=== PATIENT | male | born 1960 | race Caucasian/White ===

== ENCOUNTER 2019-08-16 15:16 | Inpatient (IN) | payer BC ==
[~2019-08-16] VITALS: Ht 177.8 cm; Wt 126.6 kg
[2019-08-16] MEDS ORDERED: ASPI81CH33 PO (15:27)
[2019-08-16] MEDS ORDERED: ABIL1TAB11 PO ×2 (15:28→21:52)
[2019-08-16] MEDS ORDERED: PLAV1TAB2 PO ×2 (15:28→21:52)
[2019-08-16] MEDS ORDERED: METO1TAB87 PO ×2 (15:38→21:52)
[2019-08-16] MEDS ORDERED: BUPR150T3 PO ×2 (15:39→21:52)
[2019-08-16] MEDS ORDERED: WELLTAB38 PO (15:40)
[2019-08-16] MEDS ORDERED: PANTOPRAZOLE 40MG INJ (PROTONIX) (C9113) IV ONE (17:00)
[2019-08-16] MEDS ORDERED: NS 1,000 ML IV ONE (17:00)
[2019-08-16] MEDS ORDERED: ONDANSETRON 4MG/2ML VIAL (J2405) IV ONE (17:00)
[2019-08-16 17:07] LABS: BASO % 0.4 % (0.0-1.0); EOS # 0.1 10^3/uL (0.0-0.5); EOS % 0.7 % (0.0-3.0); HEMATOCRIT 47.8 % (42.0-52.0); LYMPH # 1.9 10^3/uL (1.5-5.0); LYMPH % 19.2 % (24.0-44.0); MEAN CORPUSCULAR HEMOGLOBIN 31.3 pg (27.0-33.0); MEAN CORPUSCULAR HGB CONC 33.5 g/dl (32.0-36.5); MEAN CORPUSCULAR VOLUME 93.5 fl (80.0-96.0); MONO # 0.9 10^3/uL (0.0-0.8); MONO % 9.1 % (0.0-5.0); NEUTROPHILS # 7.1 10^3/uL (1.5-8.5); NEUTROPHILS % 70.1 % (36.0-66.0); PLATELET COUNT, AUTOMATED 254 10^3/uL (150-450); RED BLOOD COUNT 5.11 10^6/uL (4.30-6.10); WHITE BLOOD COUNT 10.1 10^3/uL (4.0-10.0)
[2019-08-16 17:17] LABS: INR 1.07; PROTHROMBIN TIME 13.6 SECONDS (11.8-14.0)
[2019-08-16 17:24] LABS: ALBUMIN 4.1 GM/DL (3.2-5.2); ALT/SGPT 36 U/L (12-78); AMYLASE 40 U/L (25-115); BILIRUBIN,DIRECT 0.2 MG/DL (0.0-0.2); BILIRUBIN,TOTAL 0.9 MG/DL (0.2-1.0); BLOOD UREA NITROGEN 15 MG/DL (7-18); CALCIUM LEVEL 8.9 MG/DL (8.5-10.1); CARBON DIOXIDE LEVEL 27 MEQ/L (21-32); CHLORIDE LEVEL 107 MEQ/L (98-107); CREATININE FOR GFR 1.23 MG/DL (0.70-1.30); GLOMERULAR FILTRATION RATE > 60.0 (>56); GLUCOSE, FASTING 104 MG/DL (70-100); LIPASE 94 U/L (73-393); POTASSIUM SERUM 4.5 MEQ/L (3.5-5.1); SODIUM LEVEL 141 MEQ/L (136-145); TOTAL PROTEIN 7.2 GM/DL (6.4-8.2)
[2019-08-16] MEDS: GASTROGRAFIN SOLUTION 30ML PO SCH ×2 (18:14→18:23)
[2019-08-16] MEDS ORDERED: ISOVUE-370 76% 100ML VIAL (Q9967) As Ordered ONE (18:55)
--- NOTE | 2019-08-16 20:55 | REPVR ---
PROCEDURE INFORMATION: Exam: CT Abdomen And Pelvis With Contrast Exam date and time: 08/16/2019 8:10 PM Clinical history: 59 years old, male; Condition or disease; Intestinal condition; Other: ? Obstruction; Vomiting; Additional info: R/O obstruction TECHNIQUE: Imaging protocol: Computed tomography of the abdomen and pelvis with intravenous contrast. Radiation optimization: All CT scans at this facility use at least one of these dose optimization techniques: automated exposure control; mA and/or kV adjustment per patient size (includes targeted exams where dose is matched to clinical indication); or iterative reconstruction. Contrast material: ISOVUE 370; Contrast volume: 100 ml; Contrast route: IV; COMPARISON: No relevant prior studies available. FINDINGS: Lungs: Minimal bilateral lower lobe fibro-atelectatic change. Liver: The liver attenuation is 56 Hounsfield units and the spleen is 105 Hounsfield units. Gallbladder and bile ducts: Normal. No calcified stones. No ductal dilation. Pancreas: Normal. No ductal dilation. Spleen: Normal. No splenomegaly. Adrenals: Normal. No mass. Kidneys and ureters: Normal. No hydronephrosis. Stomach and bowel: Mild distention of small bowel segments with air-fluid levels and normal distal ileum consistent with a small bowel obstruction.There are some segments of small bowel in the right abdomen which demonstrate wall thickening and slight surrounding induration consistent with enteritis and likely reflects a tapering transition or adynamic segment There is colonic diverticulosis without evidence of diverticulitis. Appendix: There are no changes of appendicitis. A normal appendix is not seen. Intraperitoneal space: Unremarkable. No free air. No significant fluid collection. Vasculature: Unremarkable. No abdominal aortic aneurysm. Lymph nodes: Unremarkable. No enlarged lymph nodes. Bladder: Unremarkable as visualized. Reproductive: Unremarkable as visualized. Bones/joints: Unremarkable. No acute fracture. Soft tissues: Unremarkable. IMPRESSION: 1. Relative small bowel obstruction which appears to be due to segments of small bowel enteritis in the right abdomen which likely forms an adynamic segment, effectively acting as a point of obstruction. 2. Minimal colonic diverticulosis without diverticulitis. 3. Fatty infiltration of the liver. Electronically signed by: Sandip Delaney On 08/16/2019 20:54:54 PM
[2019-08-16] MEDS ORDERED: DIVALPROEX 500MG *ER* TAB PO SCH (21:00)
[2019-08-16] MEDS ORDERED: DIVA500T9 PO (21:52)
[2019-08-16] MEDS ORDERED: ASPI81CH44 PO (21:52)
[2019-08-16] MEDS ORDERED: EPIP0.3I2 IM (21:52)
[2019-08-16] MEDS ORDERED: ROSU40TA4 PO (21:52)
[2019-08-16] MEDS ORDERED: SYNT50TA PO (21:52)
[2019-08-16] MEDS ORDERED: ONDANSETRON 4MG/2ML VIAL (J2405) IV PRN (23:15)
--- NOTE | 2019-08-16 23:57 | HPEPDOC ---
General Date of Admission 08/16/2019 Date of Service: Aug 16, [address] Olivia Attending Physician: ANTOLIN FIGUEROA MD Chief Complaint The patient is a 59-year-old male admitted with a reason for visit of V/D. Source: Patient, Family Exam Limitations: No limitations Timing/Duration: 24 hours Severity: Severe Associated Symptoms: Nausea, Vomiting History of Present Illness 59 yo man with a history of CAD s/p NSTEMI in 2014 s/p LAD stent on ASA/plavix since 2014?, bipolar disorder, obesity, hypertension, remote gastric ulcer and remote umbilical hernia repair who presented to the ED with 24 hours of nausea and copious emesis that started after self induction for abdominal discomfort with associated bloating and distention that began shortly after having cold cut sandwiches for dinner on 08/15/2019. He reports having had dinner sandwiches at ~8pm and woke up with abdominal discomfort and nausea at 2am after which he induced himself to vomit and thereafter had 5 more episodes of spontaneous emesis and severe nausea. He presented to the ED this morning a few hours after his symptoms began reporting the nausea, copious food+watery emesis without blood or bilious material, without any history of fever, chills, jhon sharp abdominal pain, diarrhea, or prolonged constipation. He reported having had 1 sm all formed bowel movement since his symptoms began. He otherwise reports rare alcohol intake 2-3 times monthly, no smoking history, no travel, take out or family members with similar symptoms. In the ED he arrived hemodynamically stable with BP 155/97, was afebrile, with no acute distress and noted to have a distended abdomen without jhon pain on examination. Initial work up was notable for WBC of 10.1 with 70% PMNs, H/H 16/47.8, Cr 1.23, normal LFTs and lipase, and a CT A/P that showed small bowel enteritis with evidence of a relative SBO. The ED provider spoke with Dr. Olivia (surgery) who recommended admission to medicine and will evaluate the patient in the morning with placement of an NG tube, bowel rest and IV fluids. While in the ED he received zofran 4mg IV x 1 and 1L NS. When I examined Mr. Pascual he was in no acute distress but did report discomfort from the NG tube that was draining creamish gastric contents that was non bloody and non bilious. His nausea had improved since zofran. He corroborated the acute nausea and emesis since the night before that prompted his presentation and denied history of prior similar events, fever, chills, diarrhea, hematemesis, melena, hematochezia, recent weight loss, with the only abdominal surgical history being the umbilical hernia repair that he had 10-12 years ago. Home Medications Scheduled Aripiprazole (Abilify) 5 Mg Tablet, 5 MG PO DAILY, (Reported) Aspirin (Aspirin) 81 Mg Tab.chew, 81 MG PO DAILY, (Reported) Bupropion Hcl (Bupropion Xl) 150 Mg Tab.er.24h, 150 MG PO DAILY, (Reported) Clopidogrel Bisulfate (Plavix) 75 Mg Tablet, 75 MG PO DAILY, (Reported) Divalproex Sodium (Divalproex Sodium ER) 500 Mg Tab.er.24h, 1,500 MG PO QHS, (Reported) Levothyroxine Sodium (Synthroid) 50 Mcg Tablet, 50 MCG PO DAILY, (Reported) Metoprolol Tartrate (Metoprolol Tartrate) 25 Mg Tablet, 25 MG PO BID, (Reported) Rosuvastatin Calcium (Rosuvastatin Calcium) 40 Mg Tablet, 40 MG PO DAILY, (Reported) Scheduled PRN Epinephrine (Epipen 2-Ion) 0.3 Mg/0.3 Ml Auto.injct, 0.3 MG IM ASDIRECTED PRN for ANAPHYLAXIS, (Reported) Allergies Coded Allergies: bee venom protein (honey bee) (Verified Allergy, Severe, anaphylaxis, 08/16/19) Past Medical History Medical History CAD s/p LAD stent Hypertension Hyperlipidemia History of umbilical hernia s/p repair >10y ago Bipolar disorder hypothyroidism Obesity Surgical History Umbilical hernia repair LAD stent placement Family History Significant Family History: Hypertension Social History * Smoker: Denies Alcohol: rarely Drugs: denies Recent Travel/Sick Contacts: Denies: Recent travel, Recent sick contacts Psychosocial History: Bipolar, Depression , at bedside A-FIB/CHADSVASC A-FIB History Current/History of A-Fib/PAF?: No Current PO Anticoag Therapy: No Age/Risk Factor Scoring CHADSVASC: CHADSVASC Response (Comments) Value Age Risk Factor Age < 65 years old 0 Gender Risk Factor Male 0 Hx of CHF No 0 Hx of HTN Yes 1 Hx of Stroke/TIA/or VTE No 0 Hx of Diabetes No 0 Hx of Vascular Disease Yes 1 Total 2 Treatment Treatment ordered: NONE Reason Anticoagulant not given: Not indicated/[id number] Review of Systems Constitutional: Denies: Chills, Fever, Night Sweats, Weakness, Fatigue, Weight Loss Eyes: Denies: Pain, Vision change ENT: Denies: Head Aches, Ear Pain, Dysphagia Skin: Denies: Rash, Lesions, Breakdown Pulmonary: Denies: Dyspnea, Cough Cardiovascular: Denies: Chest Pain, Palpitations, Orthopnea, Paroxysmal Noc. Dyspnea, Edema, Lt Headedness Gastrointestinal: Reports: Nausea, Vomiting, Abdominal Pain (discomfort with severe bloating); Denies: Diarrhea, Melena, Hematochezia Genitourinary: Denies: Dysuria, Frequency, Incontinence, Hematuria, Retention Hematologic: Denies: Bruising, Bleeding Excessively Endocrine: Denies: Polydipsia, Polyphagia, Polyuria, Heat Intolerance, Cold Intolerance, Other Endocrine Sx Musculoskeletal: Denies: Neck Pain, Back Pain, Joint Pain, Muscle Pain, Spasms Neurological: Denies: Weakness, Numbness, Change in speech, Confusion Psych: Reports: Mood Normal; Denies: Anxiety, Depression, Memory Issues, Thoughts of Self Harm, Thoughts of Harming Other Physical Examination General Exam: Positive: Alert, No Acute Distress, Other (reporting discomfort from NG tube) Eye Exam: Positive: PERRLA, Conjunctiva & lids normal, EOMI; Negative: Sclera icteric ENT Exam: Positive: Atraumatic, Mucous membr. moist/pink, Pharynx Normal Neck Exam: Positive: Supple; Negative: JVD, thyromegaly Chest Exam: Positive: Clear to auscultation, Normal air movement; Negative: Rales, Rhonchi, Wheezing, Diminished Heart Exam: Positive: Rate Normal, Regular Rhythm, Normal S1, Normal S2; Negative: Murmurs, Rubs Abdomen Exam: Positive: BS Hyperactive, Hernia (appears to have an epigastric abdominal hernia on exam that is reducible), Other (distended); Negative: Tenderness, Hepatospenomegaly, Mass Extremity Exam: Positive: Normal pulses; Negative: Clubbing, Cyanosis, Edema Skin Exam: Positive: Nl turgor and temperature; Negative: Breakdown, Lesion Neuro Exam: Positive: Normal Speech, Strength at 5/5 X4 ext, Normal Tone, Sensation Intact, Cranial Nerves 3-12 NL Psych Exam: Positive: Mental status NL, Mood NL, Oriented x 3 Vital Signs Vital Signs Date Time Temp Pulse Resp B/P (MAP) Pulse Ox O2 Delivery O2 Flow Rate FiO2 08/16/19 20:00 68 16 155/97 (116) 98 Room Air 08/16/19 15:25 98.2 Laboratory Data Labs 24H Laboratory Tests 2 08/16/19 16:50: Immature Granulocyte % (Auto) 0.5, Neutrophils (%) (Auto) 70.1H, Lymphocytes (%) (Auto) 19.2L, Monocytes (%) (Auto) 9.1H, Eosinophils (%) (Auto) 0.7, Basophils (%) (Auto) 0.4, Neutrophils # (Auto) 7.1, Lymphocytes # (Auto) 1.9, Monocytes # (Auto) 0.9H, Eosinophils # (Auto) 0.1, Basophils # (Auto) 0.0, Nucleated Red Blood Cells % (auto) 0.0, Anion Gap 7L, Glomerular Filtration Rate > 60.0, Calcium Level 8.9, Total Bilirubin 0.9, Direct Bilirubin 0.2, Aspartate Amino Transf (AST/SGOT) 22, Alanine Aminotransferase (ALT/SGPT) 36, Alkaline Phosphatase 85, Total Protein 7.2, Albumin 4.1, Albumin/Globulin Ratio 1.32, Amylase Level 40, Lipase 94 08/16/19 16:59: Prothrombin Time 13.6, Prothromb Time International Ratio 1.07 08/16/19 20:58: Urine Color YELLOW, Urine Appearance CLEAR, Urine pH 6.0, Urine Specific [place] >1.060H, Urine Protein NEGATIVE, Urine Glucose (UA) NEGATIVE, Urine Ketones NEGATIVE, Urine Blood NEGATIVE, Urine Nitrite NEGATIVE, Urine Bilirubin NEGATIVE, Urine Urobilinogen 2.0H, Urine Leukocyte Esterase NEGATIVE, Urine WBC (Auto) 0, Urine RBC (Auto) 0, Urine Hyaline Casts (Auto) 0, Urine Bacteria (Auto) NEGATIVE, Urine Squamous Epithelial Cells 0, Urine Mucus (Auto) SMALL, Urine Sperm (Auto) CBC/BMP Laboratory Tests 08/16/19 16:50 Assessment/Plan 59 yo man with a history of CAD s/p LAD stent on ASA/plavix since 2014, hypertension and obesity who presented with acute nausea and copious emesis not tolerating PO and found to have evidence of enteritis and an SBO on CT A/P. Plan: SBO: -Bowel rest with NPO status for now -D5NS @ 100cc/hr while NPO, s/p 1L in the ED -surgical consult placed, Dr. Olivia aware of patient pe ED, to officially call in the morning -Etiology unclear, likely 2/2 enteritis, likely viral given acuity of symptoms, no extensive abdominal surgical history with remote umbilical hernia repair -NG tube in place for decompression -Will likely need KUB sometime tomorrow to monitor SBO, is pending surgery consult eval Enteritis - likely viral gastroenteritis given acuity, no significant leukocytosis. Also of note, had normal LFTs and lipase with no evidence of bili [place] or renal stones to explain the N/V. -supportive treatment with fluids and antiemetics, 100cc/hr D5NS and zofran 4mg IV Q4H PRN respectively -monitor for now -AM CBC, CMP and lactate CAD: -continue ASA 81 -Plavix? Not sure why he remains on plavix for 4 years after an NSTEMI s/p LAD stent. [employer] is Dr. Lala Allen of [facility] at [phone] --> day team to clarify the indication given no history of stroke or other recent stents. -continue metop 25 BID -continue statin Hyperlipidemia: -continue home crestor Hypertension: -continue home metop 25 BID Hypothyroidism: -continue home synthroid Bipolar disorder: -continue home Wellbutrin, Depakote, Abilify Diet: NPO for now, on D5NS DVT prophylaxis: heparin [id number] Dispo: Inpatient for SBO pending surgery consult Plan / VTE VTE Prophylaxis Ordered?: Yes ANTOLIN FIGUEROA MD Aug 16, 2019 23:57
[2019-08-17 01:00] VITALS: BP 162/96
[2019-08-17] MEDS: D5W/0.9% SODIUM CHLORIDE 1,000 ML IV SCH ×3 (01:54→20:45)
[2019-08-17] MEDS: METOPROLOL TART 25 MG TABLET PO SCH ×3 (02:18→20:42)
[2019-08-17] MEDS: VALPROATE SOD INJ 500 MG in D5W 50 ML IV SCH ×3 (04:32→20:42)
--- NOTE | 2019-08-17 05:24 | CR.PDOC ---
General Surgery Consultation Date of Consultation 08/17/19 History and Physical CONSULT REPORT FOR: emergency room provider/hospitalist service REASON FOR CONSULTATION: nausea, vomiting, enteritis HISTORY OF PRESENT ILLNESS: PAST MEDICAL HISTORY: 1. . PAST SURGICAL HISTORY: INCLUDES: 1. . PREVIOUS ANESTHESIA REACTIONS: ALLERGIES: Please see below. FAMILY HISTORY: . HOME MEDICATIONS: Please see below. REVIEW OF SYSTEMS: GENERAL: [Denies chills, reports weight gain, reports feeling febrile yesterday]. HEENT: [Denies blurred vision and double vision. Denies ear symptoms. Denies hoarseness]. NECK: Denies any neck pain]. CARDIOVASCULAR: [Denies chest pain and palpitations]. MUSCULOSKELETAL: [Denies arthralgias, back pain and thrombophlebitis]. SKIN: [Denies rash]. NEUROLOGIC: [Denies headache, stroke and transient ischemic attack]. PSYCHIATRIC: [Denies anxiety and depression]. ENDOCRINE: [Denies thyroid disease]. HEMATOLOGY/ONCOLOGY: [Denies bleeding or clotting disorder]. HEART: [Denies any chest pains, palpitations, paroxysmal dyspnea, orthopnea]. PULMONARY: [Denies chronic cough, dyspnea and wheezing]. GASTROINTESTINAL: [Denies rectal bleeding, family history of colon cancer, constipation, diarrhea, dysphagia, heartburn and jaundice]. GENITOURINARY: [Denies dysuria, frequency, hematuria and nocturia]. ENDOCRINE: [Denies polydipsia, polyphagia, polyuria, heat or cold intolerance]. INFECTIOUS: [Denies any recent upper respiratory tract infection, UTI, need for use of antibiotics]. NUTRITION: [Reports good appetite]. PHYSICAL EXAMINATION: VITALS SIGNS: Please see below. GENERAL APPEARANCE:[Patient seen, laying in bed, awake, alert, and oriented. Comfortable, in no acute distress]. SKIN: [Warm and moist]. HEENT: [Normocephalic, atraumatic. [place] palpebral conjunctiva, anicteric sclerae. Lips and mucosa appear moist]. NECK: [Supple, no thyromegaly. No obvious jugular venous distention]. LUNGS: [Clear to auscultation bilaterally. No wheezing appreciated]. HEART: [No chest wall abnormalities. Regular rate and rhythm with no murmurs appreciated]. ABDOMEN: Abdomen is , soft, . [No hepatosplenomegaly. No umbilical or groin herniations, nondistended. No noticeable rebound or guarding. No grimacing with palpation. No rebound tenderness. No masses appreciated]. EXTREMITIES: [Extremities have no deformities. No edema identified] ANCILLARIES: . LABORATORY DATA: Please see below. IMAGING STUDIES: CT abdomen and pelvis 1. Relative small bowel obstruction which appears to be due to segments of small bowel enteritis in the right abdomen which likely forms an adynamic segment, effectively acting as a point of obstruction. 2. Minimal colonic diverticulosis without diverticulitis. 3. Fatty infiltration of the liver. IMPRESSION AND PLAN: enteritis prob related ileus more than a mechanical sbo conservative management Vital Signs Vital Signs Date Time Temp Pulse Resp B/P (MAP) Pulse Ox O2 Delivery O2 Flow Rate FiO2 08/17/19 02:18 63 162/96 08/17/19 01:00 97.4 18 95 Room Air I&Os I&O- Last 24 Hours up to 6 AM 08/17/19 06:00 Intake Total 1000 ml Balance 1000 ml Laboratory Data Labs 24H Laboratory Tests 2 08/16/19 16:50: Immature Granulocyte % (Auto) 0.5, Neutrophils (%) (Auto) 70.1H, Lymphocytes (%) (Auto) 19.2L, Monocytes (%) (Auto) 9.1H, Eosinophils (%) (Auto) 0.7, Basophils (%) (Auto) 0.4, Neutrophils # (Auto) 7.1, Lymphocytes # (Auto) 1.9, Monocytes # (Auto) 0.9H, Eosinophils # (Auto) 0.1, Basophils # (Auto) 0.0, Nucleated Red Blood Cells % (auto) 0.0, Anion Gap 7L, Glomerular Filtration Rate > 60.0, Calcium Level 8.9, Total Bilirubin 0.9, Direct Bilirubin 0.2, Aspartate Amino Transf (AST/SGOT) 22, Alanine Aminotransferase (ALT/SGPT) 36, Alkaline Phosphatase 85, Total Protein 7.2, Albumin 4.1, Albumin/Globulin Ratio 1.32, Amylase Level 40, Lipase 94 08/16/19 16:59: Prothrombin Time 13.6, Prothromb Time International Ratio 1.07 08/16/19 20:58: Urine Color YELLOW, Urine Appearance CLEAR, Urine pH 6.0, Urine Specific [place] >1.060H, Urine Protein NEGATIVE, Urine Glucose (UA) NEGATIVE, Urine Ketones NEGATIVE, Urine Blood NEGATIVE, Urine Nitrite NEGATIVE, Urine Bilirubin NEGATIVE, Urine Urobilinogen 2.0H, Urine Leukocyte Esterase NEGATIVE, Urine WBC (Auto) 0, Urine RBC (Auto) 0, Urine Hyaline Casts (Auto) 0, Urine Bacteria (Auto) NEGATIVE, Urine Squamous Epithelial Cells 0, Urine Mucus (Auto) SMALL, Urine Sperm (Auto) CBC/BMP Laboratory Tests 08/16/19 16:50 Home Medications Scheduled Aripiprazole (Abilify) 5 Mg Tablet, 5 MG PO DAILY, (Reported) Aspirin (Aspirin) 81 Mg Tab.chew, 81 MG PO DAILY, (Reported) Bupropion Hcl (Bupropion Xl) 150 Mg Tab.er.24h, 150 MG PO DAILY, (Reported) Clopidogrel Bisulfate (Plavix) 75 Mg Tablet, 75 MG PO DAILY, (Reported) Divalproex Sodium (Divalproex Sodium ER) 500 Mg Tab.er.24h, 1,500 MG PO QHS, (Reported) Levothyroxine Sodium (Synthroid) 50 Mcg Tablet, 50 MCG PO DAILY, (Reported) Metoprolol Tartrate (Metoprolol Tartrate) 25 Mg Tablet, 25 MG PO BID, (Reported) Rosuvastatin Calcium (Rosuvastatin Calcium) 40 Mg Tablet, 40 MG PO DAILY, (Reported) Scheduled PRN Epinephrine (Epipen 2-Ion) 0.3 Mg/0.3 Ml Auto.injct, 0.3 MG IM ASDIRECTED PRN for ANAPHYLAXIS, (Reported) Allergies Coded Allergies: bee venom protein (honey bee) (Verified Allergy, Severe, anaphylaxis, 08/16/19) RICHAR YOST MD Aug 17, 2019 05:24
[2019-08-17] MEDS: LEVOTHYROXINE 50MCG TABLET (0.05MG) PO SCH (06:13)
[2019-08-17] MEDS: HEPARIN SOD (PORCINE) 5000 UNITS/ML VIAL SC SCH ×3 (06:13→20:43)
[2019-08-17 07:28] LABS: HEMATOCRIT 42.5 % (42.0-52.0); HEMOGLOBIN 14.4 g/dl (13.5-17.5); MEAN CORPUSCULAR HEMOGLOBIN 31.7 pg (27.0-33.0); MEAN CORPUSCULAR HGB CONC 33.9 g/dl (32.0-36.5); MEAN CORPUSCULAR VOLUME 93.6 fl (80.0-96.0); PLATELET COUNT, AUTOMATED 209 10^3/uL (150-450); RED BLOOD COUNT 4.54 10^6/uL (4.30-6.10); WHITE BLOOD COUNT 8.1 10^3/uL (4.0-10.0)
[2019-08-17 08:00] VITALS: BP 142/82
[2019-08-17 08:01] LABS: ALBUMIN 3.3 GM/DL (3.2-5.2); ALT/SGPT 26 U/L (12-78); BILIRUBIN,TOTAL 1.1 MG/DL (0.2-1.0); BLOOD UREA NITROGEN 13 MG/DL (7-18); CALCIUM LEVEL 7.8 MG/DL (8.5-10.1); CARBON DIOXIDE LEVEL 29 MEQ/L (21-32); CHLORIDE LEVEL 108 MEQ/L (98-107); CREATININE FOR GFR 1.17 MG/DL (0.70-1.30); GLOMERULAR FILTRATION RATE > 60.0 (>56); GLUCOSE, FASTING 122 MG/DL (70-100); POTASSIUM SERUM 4.3 MEQ/L (3.5-5.1); SODIUM LEVEL 140 MEQ/L (136-145); TOTAL PROTEIN 6.1 GM/DL (6.4-8.2)
[2019-08-17] MEDS: ASPIRIN 81 MG CHEW TABLET PO SCH (09:03)
[2019-08-17] MEDS: CLOPIDOGREL 75 MG TAB PO SCH (09:03)
[2019-08-17] MEDS: ROSUVASTATIN 10 MG TAB (CRESTOR) PO SCH (09:03)
[2019-08-17] MEDS: buPROPion **XL** TABLET 150MG (WELLBUTRIN XL) PO SCH (09:05)
[2019-08-17] MEDS ORDERED: CHLORASEPTIC SPRAY MT PRN (12:00)
[2019-08-17 16:00] VITALS: BP 141/93
--- NOTE | 2019-08-17 19:32 | IPNPDOC ---
Text Note Date of Service The patient was seen on 08/17/19. NOTE SUBJECTIVE: Mr. Pascual was admitted with concerns for small bowel obstruction. Imaging supports ileus and enteritis. Patient has NG tube in place for decompression but it is clamped. He reports that he has been passing gas. OBJECTIVE: HENT: Patient has NG in place that is clamped. He reports that it is uncomfortable. He otherwise has supple neck, no scleral injection, moist oral mucosa. Cardiovascular: Regular rate and rhythm, normal S1 and S2. Respiratory: Clear to auscultation. Abdomen: Moderately soft, mildly distended, not especially tender, no guarding or rebound, occasional bowel tones are present, notable central obesity Extremities: No peripheral edema or lesions, pedal pulses are palpable. Neuro: No focal neuromotor, sensory or cognition deficit ASSESSMENT/PLAN: 59-year-old male admitted with concern for small bowel obstruction. Imaging s hows some small bowel thickening consistent with enteritis. This may reflect enteritis with an area of ileus. Patient has been seen by the surgery service. The patient is passing gas. We will continue with very conservative management; it is not unlikely that the NG tube can be removed later today. If patient does not have a bowel movement could consider suppository. VS,Fishbone, I+O VS, Fishbone, I+O Laboratory Tests 08/17/19 07:04 Vital Signs Date Time Temp Pulse Resp B/P (MAP) Pulse Ox O2 Delivery O2 Flow Rate FiO2 08/17/19 16:00 98.5 64 18 141/93 (109) 97 Room Air I&O- Last 24 Hours up to 6 AM 08/17/19 06:00 Intake Total 1455 ml Output Total 400 ml Balance 1055 ml JULISSA CM MD Aug 17, 2019 19:32
--- NOTE | 2019-08-17 19:38 | ECGEPIP ---
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
[2019-08-17] MEDS: DOCUSATE SODIUM 100 MG CAP PO SCH (20:42)
[2019-08-17 20:58] VITALS: BP 125/69
[2019-08-18] MEDS: D5W/0.9% SODIUM CHLORIDE 1,000 ML IV SCH ×2 (04:15→08:35)
[2019-08-18] MEDS: VALPROATE SOD INJ 500 MG in D5W 50 ML IV SCH ×2 (04:25→12:22)
[2019-08-18] MEDS: LEVOTHYROXINE 50MCG TABLET (0.05MG) PO SCH (06:55)
[2019-08-18] MEDS: HEPARIN SOD (PORCINE) 5000 UNITS/ML VIAL SC SCH (06:56)
[2019-08-18 08:00] VITALS: BP 139/76
[2019-08-18 08:09] LABS: HEMOGLOBIN 14.3 g/dl (13.5-17.5); MEAN CORPUSCULAR HEMOGLOBIN 32.1 pg (27.0-33.0); MEAN CORPUSCULAR VOLUME 94.4 fl (80.0-96.0); PLATELET COUNT, AUTOMATED 196 10^3/uL (150-450); RED BLOOD COUNT 4.45 10^6/uL (4.30-6.10); WHITE BLOOD COUNT 6.2 10^3/uL (4.0-10.0)
[2019-08-18] MEDS: CLOPIDOGREL 75 MG TAB PO SCH (08:25)
[2019-08-18] MEDS: buPROPion **XL** TABLET 150MG (WELLBUTRIN XL) PO SCH (08:25)
[2019-08-18 08:26] LABS: ALBUMIN 3.2 GM/DL (3.2-5.2); ALT/SGPT 24 U/L (12-78); BILIRUBIN,TOTAL 0.8 MG/DL (0.2-1.0); BLOOD UREA NITROGEN 8 MG/DL (7-18); CALCIUM LEVEL 8.3 MG/DL (8.5-10.1); CARBON DIOXIDE LEVEL 27 MEQ/L (21-32); CHLORIDE LEVEL 111 MEQ/L (98-107); CREATININE FOR GFR 1.04 MG/DL (0.70-1.30); GLOMERULAR FILTRATION RATE > 60.0 (>56); GLUCOSE, FASTING 107 MG/DL (70-100); POTASSIUM SERUM 3.9 MEQ/L (3.5-5.1); SODIUM LEVEL 142 MEQ/L (136-145); TOTAL PROTEIN 6.4 GM/DL (6.4-8.2)
[2019-08-18] MEDS: ROSUVASTATIN 10 MG TAB (CRESTOR) PO SCH (08:26)
[2019-08-18] MEDS: ASPIRIN 81 MG CHEW TABLET PO SCH (08:26)
[2019-08-18] MEDS: DOCUSATE SODIUM 100 MG CAP PO SCH (08:26)
[2019-08-18 08:29] VITALS: BP 133/78
[2019-08-18] MEDS: METOPROLOL TART 25 MG TABLET PO SCH (08:29)
--- NOTE | 2019-08-18 12:36 | IPN ---
DATE: 08/18/2019 HISTORY: The patient was admitted on the and was seen by Dr. Olivia in consultation on the for abdominal pain with some nausea and vomiting and a CT suggesting a possible bowel obstruction. Dr. Olivia felt the clinical picture was more consistent with some sort of gastroenteritis. The patient yesterday was started on some clear liquids which he has tolerated. He has had a bowel movement. He denies any nausea or vomiting. PHYSICAL EXAMINATION: Vital signs: Show that he has been afebrile. His pulse has generally been in the 60s and blood pressure is excellent. Intake and output show that yesterday he had 2700 in with 1200 out. PHYSICAL EXAMINATION: Patient is up walking and not having any apparent discomfort. The abdomen is obese but soft and without significant tenderness. Laboratory studies this morning show a white count of 6, hemoglobin of 14, hematocrit of 42 and a platelet count of 196,000. Chemistry profile shows minimal elevation of the chloride to 111 and a glucose of 107. Liver function tests are normal. IMPRESSION: The patient clearly has no signs of intestinal obstruction at this point. He has been tolerating clear liquids and was advanced to regular food this morning. RECOMMENDATIONS: At this point I would send the patient home if he tolerates his diet adequately. He does not require any surgical followup after discharge. LEO
--- NOTE | 2019-08-18 13:42 | DS.PDOC ---
Discharge Summary General Date of Admission Aug 16, 2019 at 22:05 Date of Discharge August 18, 2019 Specialist/Consultants Involve: RICHAR YOST MD Discharge Summary PROCEDURES PERFORMED DURING STAY: None. ADMITTING DIAGNOSES: 1. Small bowel obstruction. DISCHARGE DIAGNOSES: 1. Small bowel obstruction resolved, enteritis with ileus, coronary artery disease, bipolar disorder, morbid obesity with a body mass index of 40, essential hypertension, history of gastric ulcer disease, hypothyroidism, dyslipidemia. COMPLICATIONS/CHIEF COMPLAINT: Small Bowel Obstruction. HISTORY OF PRESENT ILLNESS/HOSPITAL COURSE: This is a 59-year-old male who presented with nausea and vomiting. Patient had considerable abdominal discomfort with bloating and distention. The patient ate a cold cut sandwich for dinner prior and presented to the emergency room some hours later. CT scan shows some small bowel enteritis and probable ileus. This had appeared to small bowel obstruction. Patient was admitted to the [facility]. He was seen by the surgery service. He was treated conservatively with placement of an NG tube for decompression, bowel rest with IV fluids, analgesics, and anti-emetics. The patient's overall symptomatology resolved. The NG tube was clamped and then removed. Patient was initially placed on a clear liquid diet which was slowly advanced. The patient had a bowel movement and was no longer considered obstructed. He was then cleared for discharge to home.. DISCHARGE MEDICATIONS: Please see below. ALLERGIES: Please see below. PHYSICAL EXAMINATION ON DISCHARGE: VITAL SIGNS: Please see below. HENT: NG tube is out. He otherwise has supple neck, no scleral injection, moist oral mucosa. Cardiovascular: Regular rate and rhythm, normal S1 and S2. Respiratory: Clear to auscultation. Abdomen: Moderately soft, mildly distended, not especially tender, no guarding or rebound, occasional bowel tones are present, notable central obesity Extremities: No peripheral edema or lesions, pedal pulses are palpable. Neuro: No focal neuromotor, sensory or cognition deficit LABORATORY DATA: Please see below. IMAGING: ABD CT SCAN IMPRESSION: 1. Relative small bowel obstruction which appears to be due to segments of small bowel enteritis in the right abdomen which likely forms an adynamic segment, effectively acting as a point of obstruction. 2. Minimal colonic diverticulosis without diverticulitis. 3. Fatty infiltration of the liver. Electronically signed by: Sandip Delaney On 08/16/2019 20:54:54 PM ACTIVITY: As tolerated. DIET: As tolerated DISCHARGE PLAN: The patient is stable for discharge to home. He may continue his diet as tolerated. He can follow-up with his primary care provider in one to 2 weeks. The patient did not require antibiotics at discharge DISPOSITION: . To home DISCHARGE CONDITION: Stable. TIME SPENT ON DISCHARGE: Greater than 35 minutes. Vital Signs/I&Os Vital Signs Date Time Temp Pulse Resp B/P (MAP) Pulse Ox O2 Delivery O2 Flow Rate FiO2 08/18/19 08:29 62 133/78 08/18/19 08:00 97.8 18 96 Room Air I&O- Last 24 Hours up to 6 AM 08/18/19 06:00 Intake Total 1665 ml Output Total 790 ml Balance 875 ml Laboratory Data Labs 24H Laboratory Tests 2 08/18/19 07:24: Nucleated Red Blood Cells % (auto) 0.0, Anion Gap 4L, Glomerular Filtration Rate > 60.0, Calcium Level 8.3L, Total Bilirubin 0.8, Aspartate Amino Transf (AST/SGOT) 11, Alanine Aminotransferase (ALT/SGPT) 24, Alkaline Phosphatase 78, Total Protein 6.4, Albumin 3.2, Albumin/Globulin Ratio 1.00 CBC/BMP Laboratory Tests 08/18/19 07:24 Discharge Medications Scheduled Aripiprazole (Abilify) 5 Mg Tablet, 5 MG PO DAILY, (Reported) Aspirin (Aspirin) 81 Mg Tab.chew, 81 MG PO DAILY, (Reported) Bupropion Hcl (Bupropion Xl) 150 Mg Tab.er.24h, 150 MG PO DAILY, (Reported) Clopidogrel Bisulfate (Plavix) 75 Mg Tablet, 75 MG PO DAILY, (Reported) Divalproex Sodium (Divalproex Sodium ER) 500 Mg Tab.er.24h, 1,500 MG PO QHS, (Reported) Levothyroxine Sodium (Synthroid) 50 Mcg Tablet, 50 MCG PO DAILY, (Reported) Metoprolol Tartrate (Metoprolol Tartrate) 25 Mg Tablet, 25 MG PO BID, (Reported) Rosuvastatin Calcium (Rosuvastatin Calcium) 40 Mg Tablet, 40 MG PO DAILY, (Reported) Scheduled PRN Epinephrine (Epipen 2-Ion) 0.3 Mg/0.3 Ml Auto.injct, 0.3 MG IM ASDIRECTED PRN for ANAPHYLAXIS, (Reported) Allergies Coded Allergies: bee venom protein (honey bee) (Verified Allergy, Severe, anaphylaxis, 08/16/19) JULISSA CM MD Aug 18, 2019 13:42
== END 2019-08-18 14:00 | disposition home or self-care (01) | DRG 247 ==
LOC: M ED 15:16 → EDBD 15:16 → M ED INP 22:05 → M PED 08-17 00:48
PROVIDERS: ADMIT Internal Medicine; ATTEND Internal Medicine
DX: K56.7 Ileus, unspecified (principal); Z68.41 Body mass index [BMI] 40.0-44.9, adult; K76.0 Fatty (change of) liver, not elsewhere classified; E66.01 Morbid (severe) obesity due to excess calories; A08.4 Viral intestinal infection, unspecified; I25.10 Atherosclerotic heart disease of native coronary artery without angina pectoris; F31.9 Bipolar disorder, unspecified; I10 Essential (primary) hypertension; E03.9 Hypothyroidism, unspecified; E78.5 Hyperlipidemia, unspecified; Z79.899 Other long term (current) drug therapy; Z79.82 Long term (current) use of aspirin; Z91.030 Bee allergy status; I25.2 Old myocardial infarction